=== PATIENT | male | born 1950 | race Caucasian/White ===

== ENCOUNTER 2020-02-02 07:32 | Inpatient (IN) ==
[2020-02-02] MEDS ORDERED: NS 0.9% 1000 ml BAG 1,000 ML IV ONE (07:42)
[2020-02-02 07:59] LABS: ABS Eosinophils 0.1 10^3/ul (0-0.6); ABS Lymphocytes 1.8 10^3/ul (1.0-4.8); ABS Monocytes 0.5 10^3/ul (0-0.8); ABS Neutrophils 3.1 10^3/ul (1.5-7.7); Eosinophil % 2.1 %; Hematocrit 42 % (42-52); Hemoglobin 14.4 g/dL (14.0-18.0); Lymphocyte % 32.2 %; Mean Corpuscular HGB Conc 34 g/dL (31-36); Mean Corpuscular Hemoglobin 32 pg (27-31); Mean Corpuscular Volume 93 fL (80-94); Mean Platelet Volume 6.9 fL (7.4-10.4); Nucleated Red Blood Cells % 0.1; Platelet Count 323 10^3/uL (150-450); Red Blood Count 4.54 10^6 /uL (4.18-5.48); Red Cell Distribution Width 14 % (10-15); White Blood Count 5.6 10^3/uL (3.5-10.8)
[2020-02-02] MEDS ORDERED: Iodixanol (CONTRAST) 320 MG/ML 100 ML SDV IV ONE (08:02)
[2020-02-02 08:11] LABS: Activated Partial Thrombo Time 35.9 seconds (26.0-38.0); INR 1.06 (0.82-1.09)
[2020-02-02 08:14] LABS: Albumin/Globulin Ratio 1.4 (1-3); Calcium 9.1 mg/dL (8.6-10.3); EGFR African American 76.3 (>60); EGFR Non-African American 63.1 (>60); Globulin 2.9 g/dL (2-4); HDL Cholesterol 42.9 mg/dL; Potassium 4.2 mmol/L (3.5-5.0); Total Bilirubin 0.5 mg/dL (0.2-1.0); Total Protein 6.9 g/dL (6.4-8.9)
[2020-02-02 08:16] LABS: Troponin I 0.01 ng/mL (<0.03)
[2020-02-02] MEDS ORDERED: Aspirin EC 325 mg TAB.EC PO ONE (08:49)
[2020-02-02 09:46] LABS: Urine Appearance Clear; Urine Bilirubin Negative (Negative); Urine Blood Negative (Negative); Urine Color Straw; Urine Glucose Negative (Negative); Urine Ketones Negative (Negative); Urine Nitrite Negative (Negative); Urine Protein Negative (Negative); Urine Specific Gravity 1.016 (1.010-1.030); Urine Urobilinogen Negative (Negative)
[2020-02-02] MEDS ORDERED: Perflutren Lipid Microsphere 3 ML VIAL ONE (13:57)
[2020-02-02] MEDS ORDERED: Heparin 5000 UNITS/ML 1 mL VIAL SUBCUT SCH (14:00)
[2020-02-02 15:47] LABS: Magnesium 2.1 mg/dL (1.9-2.7)
[2020-02-02] MEDS ORDERED: Heparin 5000 UNITS/ML 1 mL VIAL IV SCH (18:00)
[2020-02-02] MEDS ORDERED: Heparin DRIP 25,000 UNITS BAG 25,000 UNITS/500 ML BAG IV SCH (18:30)
[2020-02-02] MEDS: NS 0.9% 1000 ml BAG 1,000 ML IV SCH (19:47)
[2020-02-03 00:33] LABS: BUN/Creatinine Ratio 17.7 (8-20); Calcium 8.4 mg/dL (8.6-10.3); EGFR Non-African American 77.7 (>60)
[2020-02-03] MEDS: NS 0.9% 1000 ml BAG 1,000 ML IV SCH ×2 (03:22→12:05)
[2020-02-03 06:29] LABS: BUN/Creatinine Ratio 15.3 (8-20); Calcium 8.5 mg/dL (8.6-10.3); EGFR African American 91.8 (>60); EGFR Non-African American 75.8 (>60)
[2020-02-03] MEDS ORDERED: Heparin DRIP 25,000 UNITS BAG 25,000 UNITS/500 ML BAG IV SCH (10:30)
[2020-02-03] MEDS: Heparin DRIP 25,000 UNITS BAG 25,000 UNITS/500 ML BAG IV SCH ×2 (12:14→19:35)
[2020-02-04 04:56] LABS: ABS Eosinophils 0.1 10^3/ul (0-0.6); ABS Lymphocytes 1.6 10^3/ul (1.0-4.8); ABS Monocytes 0.5 10^3/ul (0-0.8); ABS Neutrophils 3.1 10^3/ul (1.5-7.7); Eosinophil % 2.5 %; Hematocrit 39 % (42-52); Hemoglobin 13.3 g/dL (14.0-18.0); Lymphocyte % 29.5 %; Mean Corpuscular HGB Conc 35 g/dL (31-36); Mean Corpuscular Hemoglobin 32 pg (27-31); Mean Corpuscular Volume 92 fL (80-94); Mean Platelet Volume 7.3 fL (7.4-10.4); Nucleated Red Blood Cells % 0.1; Platelet Count 255 10^3/uL (150-450); Red Blood Count 4.18 10^6 /uL (4.18-5.48); Red Cell Distribution Width 14 % (10-15); White Blood Count 5.3 10^3/uL (3.5-10.8)
[2020-02-04 05:13] LABS: BUN/Creatinine Ratio 13.4 (8-20); Calcium 8.7 mg/dL (8.6-10.3); EGFR African American 92.9 (>60); EGFR Non-African American 76.7 (>60); Magnesium 1.9 mg/dL (1.9-2.7)
[2020-02-04] MEDS: Enoxaparin 80 MG/0.8 ML SYR SUBCUT SCH (15:56)
[2020-02-04 16:05] LABS: TSH Ultra Thyroid Stim Horm 2.5 mcIU/mL (0.34-5.60)
[2020-02-05] MEDS ORDERED: Ondansetron 4 mg VIAL 2 MG/ML 2 ml VIAL IV PRN (03:40)
[2020-02-05] MEDS ORDERED: Polyethylene Glycol 3350 17 GM PACKET PO PRN (03:40)
[2020-02-05] MEDS: Enoxaparin 80 MG/0.8 ML SYR SUBCUT SCH (05:01)
[2020-02-05 08:46] LABS: INR 1.06 (0.82-1.09)
[2020-02-05] MEDS ORDERED: Heparin DRIP 25,000 UNITS BAG 25,000 UNITS/500 ML BAG IV SCH (09:15)
[2020-02-05 09:31] LABS: ABS Lymphocytes 0.4 10^3/ul (1.0-4.8); ABS Monocytes 0.3 10^3/ul (0-0.8); ABS Neutrophils 8.2 10^3/ul (1.5-7.7); Hematocrit 40 % (42-52); Hemoglobin 13.6 g/dL (14.0-18.0); Lymphocyte % 4.8 %; Mean Corpuscular HGB Conc 34 g/dL (31-36); Mean Corpuscular Hemoglobin 32 pg (27-31); Mean Corpuscular Volume 92 fL (80-94); Mean Platelet Volume 7.2 fL (7.4-10.4); Platelet Count 249 10^3/uL (150-450); Red Blood Count 4.31 10^6 /uL (4.18-5.48); Red Cell Distribution Width 14 % (10-15); White Blood Count 8.9 10^3/uL (3.5-10.8)
[2020-02-05 09:46] LABS: BUN/Creatinine Ratio 10.1 (8-20)
[2020-02-05 09:47] LABS: Calcium 9.5 mg/dL (8.6-10.3); EGFR African American 61.8 (>60); EGFR Non-African American 51.1 (>60)
[2020-02-05] MEDS ORDERED: NS 0.9% 1000 ml BAG 1,000 ML IV SCH (10:15)
[2020-02-05] MEDS ORDERED: Iodixanol (CONTRAST) 320 MG/ML 100 ML SDV IV ONE (11:17)
[2020-02-05] MEDS ORDERED: Morphine 2 MG/ML SYRINGE ONE (13:28)
[2020-02-05] MEDS: Morphine 2 MG/ML SYRINGE IV PRN ×2 (13:30→15:12)
[2020-02-05] MEDS: Warfarin DAILY REMINDER **NOTE FOLLOW UP SCH (17:05)
[2020-02-05 18:25] LABS: ABS Lymphocytes 0.6 10^3/ul (1.0-4.8); ABS Monocytes 0.6 10^3/ul (0-0.8); ABS Neutrophils 9.1 10^3/ul (1.5-7.7); Hematocrit 41 % (42-52); Hemoglobin 13.6 g/dL (14.0-18.0); Mean Corpuscular HGB Conc 34 g/dL (31-36); Mean Corpuscular Hemoglobin 31 pg (27-31); Mean Corpuscular Volume 92 fL (80-94); Mean Platelet Volume 7.4 fL (7.4-10.4); Nucleated Red Blood Cells % 0.1; Platelet Count 241 10^3/uL (150-450); Red Blood Count 4.41 10^6 /uL (4.18-5.48); Red Cell Distribution Width 14 % (10-15); White Blood Count 10.4 10^3/uL (3.5-10.8)
[2020-02-05 18:32] LABS: Activated Partial Thrombo Time 59.5 seconds (26.0-38.0); INR 1.1 (0.82-1.09)
[2020-02-05 18:40] LABS: Albumin 3.7 g/dL (3.2-5.2); Albumin/Globulin Ratio 1.5 (1-3); BUN/Creatinine Ratio 10.4 (8-20); Calcium 9.2 mg/dL (8.6-10.3); EGFR Non-African American 52.9 (>60); Globulin 2.5 g/dL (2-4); Potassium 4.4 mmol/L (3.5-5.0); Total Bilirubin 0.8 mg/dL (0.2-1.0); Total Protein 6.2 g/dL (6.4-8.9)
[2020-02-05] MEDS: NS 0.9% IV SCH (19:06)
[2020-02-05] MEDS: ARGATROBAN IV SCH (19:06)
[2020-02-05] MEDS: [UNRECOGNIZED DRUG - OTHER] IV SCH (19:06)
[2020-02-05] MEDS: NS 0.9% 1000 ml BAG 1,000 ML IV SCH (20:10)
[2020-02-06 04:38] LABS: INR 1.65 (0.82-1.09)
[2020-02-06 04:43] LABS: Calcium 8.6 mg/dL (8.6-10.3); Potassium 4.5 mmol/L (3.5-5.0)
[2020-02-06 04:46] LABS: ABS Lymphocytes 0.8 10^3/ul (1.0-4.8); ABS Monocytes 1.2 10^3/ul (0-0.8); ABS Neutrophils 10.9 10^3/ul (1.5-7.7); Eosinophil % 0.1 %; Hematocrit 41 % (42-52); Hemoglobin 13.6 g/dL (14.0-18.0); Lymphocyte % 6.2 %; Mean Corpuscular HGB Conc 34 g/dL (31-36); Mean Corpuscular Hemoglobin 31 pg (27-31); Mean Corpuscular Volume 92 fL (80-94); Mean Platelet Volume 7.7 fL (7.4-10.4); Platelet Count 228 10^3/uL (150-450); Red Blood Count 4.38 10^6 /uL (4.18-5.48); Red Cell Distribution Width 14 % (10-15)
[2020-02-06 04:48] LABS: BUN/Creatinine Ratio 11.7 (8-20); EGFR African American 62.3 (>60); EGFR Non-African American 51.5 (>60)
[2020-02-06] MEDS: NS 0.9% 1000 ml BAG 1,000 ML IV SCH (06:17)
[2020-02-06] MEDS ORDERED: hydrALAZINE 20 mg/ml 1 ML Vial IV IV SLOW PU PRN (17:32)
[2020-02-06] MEDS: Warfarin DAILY REMINDER **NOTE FOLLOW UP SCH (17:56)
[2020-02-06] MEDS: [UNRECOGNIZED DRUG - OTHER] IV SCH (21:23)
[2020-02-06] MEDS: NS 0.9% IV SCH (21:23)
[2020-02-06] MEDS: ARGATROBAN IV SCH (21:23)
[2020-02-07] MEDS: NS 0.9% 1000 ml BAG 1,000 ML IV SCH ×3 (02:42→23:53)
[2020-02-07 04:52] LABS: Hematocrit 40 % (42-52); Hemoglobin 13.4 g/dL (14.0-18.0); Mean Corpuscular HGB Conc 34 g/dL (31-36); Mean Corpuscular Hemoglobin 31 pg (27-31); Mean Corpuscular Volume 92 fL (80-94); Mean Platelet Volume 7.8 fL (7.4-10.4); Platelet Count 194 10^3/uL (150-450); Red Blood Count 4.31 10^6 /uL (4.18-5.48); Red Cell Distribution Width 14 % (10-15)
[2020-02-07 05:04] LABS: INR 2.55 (0.82-1.09)
[2020-02-07 05:06] LABS: BUN/Creatinine Ratio 12.2 (8-20); Calcium 8.3 mg/dL (8.6-10.3); EGFR Non-African American 47.1 (>60); Potassium 4.1 mmol/L (3.5-5.0)
[2020-02-07] MEDS ORDERED: Argatroban 250 MG in NS 0.9% 250 ml 247.5 ML IV SCH (08:00)
[2020-02-07 09:26] LABS: Magnesium 1.5 mg/dL (1.9-2.7)
[2020-02-07] MEDS ORDERED: Magnesium Sulfate 2 gm BAG 2 GM/50 ML BAG IVPB ONE (09:36)
[2020-02-07 10:54] LABS: TSH Ultra Thyroid Stim Horm 2.65 mcIU/mL (0.34-5.60)
[2020-02-07] MEDS ORDERED: Warfarin per PHARMACY **NOTE FOLLOW UP SCH (17:00)
[2020-02-08] MEDS: ARGATROBAN IV SCH (01:59)
[2020-02-08] MEDS: [UNRECOGNIZED DRUG - OTHER] IV SCH (01:59)
[2020-02-08] MEDS: NS 0.9% IV SCH (01:59)
[2020-02-08 05:49] LABS: INR 3.4 (0.82-1.09)
[2020-02-08 06:00] LABS: Albumin/Globulin Ratio 1.3 (1-3); BUN/Creatinine Ratio 13.4 (8-20); Calcium 8.1 mg/dL (8.6-10.3); EGFR African American 56.6 (>60); EGFR Non-African American 46.8 (>60); Globulin 2.4 g/dL (2-4); Magnesium 1.9 mg/dL (1.9-2.7); Phosphorus 2.6 mg/dL (2.5-5.0); Potassium 3.8 mmol/L (3.5-5.0); Total Bilirubin 1.1 mg/dL (0.2-1.0); Total Protein 5.4 g/dL (6.4-8.9)
[2020-02-08 06:14] LABS: ABS Lymphocytes 0.8 10^3/ul (1.0-4.8); ABS Monocytes 1.1 10^3/ul (0-0.8); ABS Neutrophils 7.9 10^3/ul (1.5-7.7); Eosinophil % 0.2 %; Hematocrit 38 % (42-52); Lymphocyte % 8.3 %; Mean Corpuscular HGB Conc 35 g/dL (31-36); Mean Corpuscular Hemoglobin 32 pg (27-31); Mean Corpuscular Volume 92 fL (80-94); Mean Platelet Volume 8.6 fL (7.4-10.4); Nucleated Red Blood Cells % 0.1; Platelet Count 177 10^3/uL (150-450); Red Blood Count 4.08 10^6 /uL (4.18-5.48); Red Cell Distribution Width 14 % (10-15); White Blood Count 9.8 10^3/uL (3.5-10.8)
[2020-02-08 06:58] LABS: Activated Partial Thrombo Time 84.9 seconds (26.0-38.0)
[2020-02-08] MEDS: NS 0.9% 1000 ml BAG 1,000 ML IV SCH (09:37)
[2020-02-09] MEDS: NS 0.9% 1000 ml BAG 1,000 ML IV SCH ×2 (02:00→20:49)
[2020-02-09 04:43] LABS: Hematocrit 36 % (42-52); Hemoglobin 12.1 g/dL (14.0-18.0); Mean Corpuscular HGB Conc 34 g/dL (31-36); Mean Corpuscular Hemoglobin 31 pg (27-31); Mean Corpuscular Volume 92 fL (80-94); Mean Platelet Volume 7.9 fL (7.4-10.4); Platelet Count 184 10^3/uL (150-450); Red Blood Count 3.86 10^6 /uL (4.18-5.48); Red Cell Distribution Width 14 % (10-15); White Blood Count 6.7 10^3/uL (3.5-10.8)
[2020-02-09 04:51] LABS: Activated Partial Thrombo Time 87.4 seconds (26.0-38.0); INR 3.99 (0.82-1.09)
[2020-02-09] MEDS: ARGATROBAN IV SCH (05:09)
[2020-02-09] MEDS: NS 0.9% IV SCH (05:09)
[2020-02-09] MEDS: [UNRECOGNIZED DRUG - OTHER] IV SCH (05:09)
[2020-02-09 05:36] LABS: Albumin 2.7 g/dL (3.2-5.2); Calcium 7.5 mg/dL (8.6-10.3); Magnesium 1.8 mg/dL (1.9-2.7); Potassium 3.6 mmol/L (3.5-5.0); Total Bilirubin 0.6 mg/dL (0.2-1.0)
[2020-02-09 05:42] LABS: Albumin/Globulin Ratio 1.4 (1-3); BUN/Creatinine Ratio 13.4 (8-20); EGFR African American 59.8 (>60); EGFR Non-African American 49.4 (>60); Total Protein 4.7 g/dL (6.4-8.9)
[2020-02-09] MEDS ORDERED: Magnesium Sulfate IV 1GM/100ML 1 GM/100 ML BAG IV ONE (06:38)
[2020-02-09] MEDS ORDERED: Potassium Chloride LIQUID 20 MEQ/15 ML LIQUID PO ONE (06:38)
[2020-02-09] MEDS ORDERED: Dextran 70/Hypromellose Tears Eye Drops 15 ml BTL (for Artificials Tears) BOTH EYES PRN (13:04)
[2020-02-09 13:06] LABS: Phospholipid Ab IgG < 9.4 GPL; Phospholipid Ab IgM, S < 9.4 MPL
[2020-02-10 07:47] LABS: Albumin/Globulin Ratio 1.2 (1-3); BUN/Creatinine Ratio 10.7 (8-20); Calcium 8.3 mg/dL (8.6-10.3); EGFR African American 60.8 (>60); EGFR Non-African American 50.2 (>60); Globulin 2.5 g/dL (2-4); Potassium 4.1 mmol/L (3.5-5.0); Total Bilirubin 0.6 mg/dL (0.2-1.0); Total Protein 5.5 g/dL (6.4-8.9)
[2020-02-10 07:48] LABS: Activated Partial Thrombo Time 90.3 seconds (26.0-38.0); INR 3.6 (0.82-1.09)
[2020-02-10 07:50] LABS: Hematocrit 36 % (42-52); Hemoglobin 12.3 g/dL (14.0-18.0); Red Blood Count 3.93 10^6 /uL (4.18-5.48); White Blood Count 5.5 10^3/uL (3.5-10.8)
[2020-02-10 07:51] LABS: Mean Corpuscular HGB Conc 34 g/dL (31-36); Mean Corpuscular Hemoglobin 31 pg (27-31); Mean Corpuscular Volume 92 fL (80-94); Mean Platelet Volume 8.2 fL (7.4-10.4); Platelet Count 192 10^3/uL (150-450); Red Cell Distribution Width 14 % (10-15)
[2020-02-10] MEDS: [UNRECOGNIZED DRUG - OTHER] IV SCH (07:54)
[2020-02-10] MEDS: ARGATROBAN IV SCH (07:54)
[2020-02-10] MEDS: NS 0.9% IV SCH (07:54)
[2020-02-10 13:51] LABS: PNH RBC Partial Antigen Loss 0.02 % (0.00-0.99)
[2020-02-11 06:22] LABS: BUN/Creatinine Ratio 10.7 (8-20); Calcium 8.7 mg/dL (8.6-10.3); EGFR African American 56.1 (>60); EGFR Non-African American 46.4 (>60); Magnesium 1.9 mg/dL (1.9-2.7); Potassium 4.3 mmol/L (3.5-5.0)
[2020-02-12 05:28] LABS: INR 1.79 (0.82-1.09)
[2020-02-12 05:38] LABS: BUN/Creatinine Ratio 10.9 (8-20); Calcium 9.3 mg/dL (8.6-10.3); EGFR African American 53.7 (>60); EGFR Non-African American 44.3 (>60); Potassium 4.2 mmol/L (3.5-5.0)
[2020-02-12 07:58] VITALS: BP 127/65
== END 2020-02-12 12:45 | disposition home or self-care (01) | DRG 65 ==
LOC: MEDTELE 07:32 → ED 07:32 → OBSVTOIN 10:00 → MEDTELE 12:20 → ICU 02-05 18:12 → MEDTELE 02-10 12:16
PROVIDERS: ADMIT Internal Medicine; ATTEND Internal Medicine